=== PATIENT | female | born 1975 | race Caucasian/White ===

== ENCOUNTER → 2019-02-11 20:29 | Emergency (ER) | payer BC, MEDICAID, OTHER ==
[~2019-02-11 20:29] MED LIST: Amoxicillin/Clavulanate TAB* 875 MG PO ONE; Ibuprofen TAB* 800 MG PO ONE
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
[2019-02-11 21:40] VITALS: BP 133/67
== END | disposition home or self-care (01) ==
LOC: ED 20:29
DX: H66.92 Otitis media, unspecified, left ear (principal); Z88.5 Allergy status to narcotic agent
CPT/HCPCS: 99282; A9270-GY

== ENCOUNTER 2019-07-06 15:50 | Emergency (ER) | payer OTHER ==
[2019-07-06] MEDS ORDERED: Albuterol 2.5 MG/3 ML NEB.SOL* (0.083%) INH ONE (17:03)
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
[2019-07-06 17:51] LABS: Influenza A Molecular NEGATIVE (Negative); Influenza B Molecular NEGATIVE (Negative)
[2019-07-06 18:41] VITALS: BP 134/76
== END 2019-07-06 18:40 | disposition home or self-care (01) ==
LOC: ED 15:50
DX: B34.9 Viral infection, unspecified (principal); R05 Cough; J02.9 Acute pharyngitis, unspecified; R51 Headache; E03.9 Hypothyroidism, unspecified; R07.9 Chest pain, unspecified; R11.0 Nausea
CPT/HCPCS: 71046; 99282

== ENCOUNTER 2020-06-22 09:50 | Observation (INO) ==
[2020-06-22 11:07] LABS: ABS Eosinophils 0.1 10^3/ul (0-0.6); ABS Lymphocytes 1.7 10^3/ul (1.0-4.8); ABS Monocytes 0.9 10^3/ul (0-0.8); ABS Neutrophils 9.3 10^3/ul (1.5-7.7); Eosinophil % 1.2 %; Hematocrit 36 % (35-47); Hemoglobin 11.5 g/dL (12.0-16.0); Mean Corpuscular HGB Conc 32 g/dL (31-36); Mean Corpuscular Hemoglobin 24 pg (27-31); Mean Corpuscular Volume 73 fL (80-97); Mean Platelet Volume 7.4 fL (7.4-10.4); Platelet Count 413 10^3/uL (150-450); Red Blood Count 4.89 10^6 /uL (3.70-4.87); Red Cell Distribution Width 17 % (10-15); White Blood Count 12.1 10^3/uL (3.5-10.8)
[2020-06-22 11:15] LABS: Activated Partial Thrombo Time 23.7 seconds (26.0-38.0); INR 1.05 (0.82-1.09)
[2020-06-22 11:32] LABS: ALT 39 U/L (7-52); AST 26 U/L (13-39); Albumin/Globulin Ratio 1.3 (1-3); Alkaline Phosphatase 58 U/L (34-104); Anion Gap 8 mmol/L (2-11); Blood Urea Nitrogen 16 mg/dL (6-24); C Reactive Protein 20.31 mg/L (<8.01); CO2 Carbon Dioxide 24 mmol/L (22-32); Calcium 9.2 mg/dL (8.6-10.3); Chloride 107 mmol/L (101-111); Creatine Kinase 84 U/L (10-223); EGFR African American 122.5 (>60); EGFR Non-African American 101.3 (>60); Globulin 3.1 g/dL (2-4); Glucose 106 mg/dL (70-100); Potassium 3.8 mmol/L (3.5-5.0); Sodium 139 mmol/L (135-145); Total Protein 7.1 g/dL (6.4-8.9)
[2020-06-22 11:36] LABS: Troponin I 0.15 ng/mL (<0.03)
[2020-06-22 11:43] LABS: Microcytosis 2+
[2020-06-22 12:02] LABS: Urine Appearance Clear; Urine Bilirubin Negative (Negative); Urine Blood 3+ (Negative); Urine Color Straw; Urine Glucose Negative (Negative); Urine Ketones Negative (Negative); Urine Nitrite Negative (Negative); Urine Protein Negative (Negative); Urine Specific Gravity 1.004 (1.010-1.030); Urine Urobilinogen Negative (Negative)
[2020-06-22] MEDS ORDERED: Iohexol 350 (CONTRAST) 500 ML MDV IV ONE (12:04)
[2020-06-22 12:11] LABS: Urine Bacteria Absent (Absent); Urine Red Blood Cell 3+(>10/hpf) (Absent); Urine Squamous Epithelial Cell Present (Absent); Urine White Blood Cell Trace(0-5/hpf) (Absent)
[2020-06-22] MEDS ORDERED: Heparin DRIP 25,000 UNITS BAG 25,000 UNITS/500 ML BAG IV SCH (12:45)
[2020-06-22] MEDS ORDERED: Heparin 5000 UNITS/ML 1 mL VIAL IV SCH (13:00)
[2020-06-22] MEDS: Heparin 5000 UNITS/ML 1 mL VIAL IV SCH ×2 (13:28→21:18)
[2020-06-22] MEDS: Heparin DRIP 25,000 UNITS BAG 25,000 UNITS/500 ML BAG IV SCH (13:31)
[2020-06-22] MEDS ORDERED: Al Hydrox/Mg Hydrox/Simet LIQ 30 ML UDC PO PRN (15:01)
[2020-06-22 17:05] LABS: ABS Basophils 0.1 10^3/ul (0-0.2); ABS Lymphocytes 2.9 10^3/ul (1.0-4.8); ABS Monocytes 0.9 10^3/ul (0-0.8); ABS Neutrophils 10.3 10^3/ul (1.5-7.7); Eosinophil % 0.2 %; Hematocrit 36 % (35-47); Lymphocyte % 20.5 %; Mean Corpuscular HGB Conc 33 g/dL (31-36); Mean Corpuscular Hemoglobin 24 pg (27-31); Mean Corpuscular Volume 72 fL (80-97); Mean Platelet Volume 7.3 fL (7.4-10.4); Platelet Count 462 10^3/uL (150-450); Red Blood Count 5.01 10^6 /uL (3.70-4.87); Red Cell Distribution Width 18 % (10-15); White Blood Count 14.1 10^3/uL (3.5-10.8)
[2020-06-22 17:18] LABS: Troponin I 1.32 ng/mL (<0.03)
[2020-06-22 20:40] LABS: Troponin I 1.24 ng/mL (<0.03)
[2020-06-22 23:32] LABS: Troponin I 1.25 ng/mL (<0.03)
[2020-06-23 03:50] LABS: ABS Basophils 0.1 10^3/ul (0-0.2); ABS Eosinophils 0.2 10^3/ul (0-0.6); ABS Lymphocytes 3.3 10^3/ul (1.0-4.8); ABS Neutrophils 7.1 10^3/ul (1.5-7.7); Eosinophil % 2.1 %; Hematocrit 33 % (35-47); Hemoglobin 10.9 g/dL (12.0-16.0); Lymphocyte % 28.2 %; Mean Corpuscular HGB Conc 33 g/dL (31-36); Mean Corpuscular Hemoglobin 23 pg (27-31); Mean Corpuscular Volume 72 fL (80-97); Mean Platelet Volume 7.1 fL (7.4-10.4); Platelet Count 439 10^3/uL (150-450); Red Blood Count 4.65 10^6 /uL (3.70-4.87); Red Cell Distribution Width 18 % (10-15); White Blood Count 11.7 10^3/uL (3.5-10.8)
[2020-06-23] MEDS: Heparin DRIP 25,000 UNITS BAG 25,000 UNITS/500 ML BAG IV SCH (07:03)
[2020-06-23 13:16] VITALS: BP 123/74
[2020-06-26 15:39] LABS: Albumin 2.9 g/dL (3.4-4.7); Albumin/Globulin Ratio 0.84; Gamma Globulin 1.1 g/dL (0.6-1.6); Total Protein(PEP) 6.3 g/dL (6.3 - 7.9)
[2020-06-28 13:23] LABS: Albumin/Globulin Ratio 0.69 %; Protein,Total, Random Urine 12 mg/dL
[2020-06-30 23:16] LABS: FACV Specimen Whole Blood
== END 2020-06-23 13:40 | disposition home or self-care (01) ==
LOC: ED 09:50 → INTOOBSV 13:00 → MEDTELE 13:00
PROVIDERS: ADMIT Internal Medicine; ATTEND Internal Medicine